=== PATIENT | female | born 1965 | race Caucasian/White ===

== ENCOUNTER 2019-01-26 08:27 | Day surgery (SDC) | payer OTHER ==
[~2019-01-26] VITALS: Ht 172.7 cm; Wt 108.9 kg
[2019-01-26] MEDS ORDERED: ONDANSETRON HCL 4 MG/2 ML VIAL IVP PRN (08:45)
[2019-01-26] MEDS ORDERED: fentaNYL CITRATE/PF 100 MCG/2 ML AMP IVP PRN ×2 (08:45)
[2019-01-26] MEDS ORDERED: BACITRACIN ZINC 15 GM TOPICAL OINTMENT TP ONE (12:55)
[2019-01-26] MEDS ORDERED: LR 1,000 ML IV.SOLN IV ONE (12:55)
[2019-01-26] MEDS ORDERED: EPINEPHrine 1 MG/ML AMP IV ONE (12:55)
[2019-01-26] MEDS ORDERED: fentaNYL CITRATE/PF 100 MCG/2 ML AMP IVP ONE (12:55)
[2019-01-26] MEDS ORDERED: DEXAMETHASONE SOD PHOSPHATE 4 MG/ML VIAL IVP ONE (12:55)
[2019-01-26] MEDS ORDERED: ROCURONIUM BROMIDE 10 MG/ML (ZEMURON) IV ONE (12:55)
[2019-01-26] MEDS ORDERED: MIDAZOLAM HCL 5 MG/5 ML VIAL IVP ONE (12:55)
[2019-01-26] MEDS ORDERED: PROPOFOL 200MG/ 20ML VIAL (DIPRIVAN) IV ONE (12:55)
[2019-01-26] MEDS ORDERED: SEVOFLURANE 15 MIN GAS INH ONE (12:55)
[2019-01-26] MEDS ORDERED: MUPIROCIN 2% TOPICAL OINTMENT 22 GM TP ONE (12:55)
[2019-01-26] MEDS ORDERED: WATER FOR IRRIGATION,STERILE 1,000 ML IRRIG.SOLN IR ONE (12:55)
[2019-01-26] MEDS ORDERED: HYDROcodone/ACETAMIN 5-325 MG TAB (NORCO/ VICODIN) PO PRN (14:45)
[2019-01-26] MEDS ORDERED: HYDROcodone/ACETAMIN 5-325 MG TAB (NORCO/ VICODIN) ONE (14:53)
[2019-01-26 14:59] VITALS: BP_SYST 140
== END 2019-01-26 17:00 | disposition home or self-care (01) ==
LOC: SDS 08:27 → SMU 08:28 → SDS 17:00
PROVIDERS: ATTEND Otolaryngology
DX: J32.4 Chronic pansinusitis (principal); J35.01 Chronic tonsillitis; E66.3 Overweight; K21.9 Gastro-esophageal reflux disease without esophagitis; J34.2 Deviated nasal septum; I10 Essential (primary) hypertension; E66.01 Morbid (severe) obesity due to excess calories; Z68.36 Body mass index [BMI] 36.0-36.9, adult
CPT/HCPCS: 30140; 30520; 31255; 31267; 31296; 42821; 88304; 88305; 88311; C1726; J0171; J1100; J2250; J2704; J3010; J7120